=== PATIENT | female | born 1930 | race Caucasian/White ===

== ENCOUNTER → 2016-07-26 | Outpatient (CLI) | payer MEDICARE ==
[~2016-07-26] VITALS: Ht 157.5 cm; Wt 55.8 kg
[~2016-07-26] MED LIST: LIDOCAINE 1% INJ 20 ML (XYLOCAINE) VIAL ONE
[2016-07-26 14:03] VITALS: BP 137/84
[2016-07-26 15:12] VITALS: BP 130/87
--- NOTE | 2016-07-26 18:20 | Diagnostic Imaging Report ---
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 The patient has had a nephrostomy tube in the right kidney but the nephrostomy tube accidentally was pulled out.. CONSENT: Informed consent was obtained from the patient. The risks, benefits, potential complications and alternatives were reviewed and all questions answered to the patient's satisfaction. The patient's vital signs, cardiac rhythm, and pulse oximetry were observed throughout the procedure by qualified nursing personnel. SEDATION: None. CONTRAST: 55 mL of Isovue 300 was utilized. FLUOROSCOPY TIME: 4 minutes and 55 seconds. PROCEDURE: After maximal sterile barrier technique preparation and draping, around the prior nephrostomy tract, __ was performed. The skin was sealed off at the nephrostomy which suggests that the tube has been retracted for at least 5-7 days. Recanalization of the tract with attempted and initially utilizing an angled Glidewire, a portion of the tract was recanalized. The wire would not advance further and a catheter needed to be inserted. Then some contrast was injected and images were performed demonstrating a tract that did not lead to the kidney but appeared to opacify further tract closer to the kidney. This was utilized as a roadmap for advancing the wire further and eventually the wire was advanced into the renal collecting system. Catheter was advanced over the wire and then contrast was injected and confirmed proper location within the right renal collecting system which is severely dilated. Subsequently, the wire was exchanged utilizing the catheter for a stiff wire and a 10 German new nephrostomy tube was introduced over the wire and the pigtail in the is formed within the renal pelvis. Contrast injection was performed subsequently to confirm positioning of the tube and perform a nephrostogram. The patient tolerated the procedure well with no immediate complications. FINDINGS: Nephrostogram demonstrates severe right hydronephrosis with complete proximal ureteric obstruction. IMPRESSION: 1. Successful placement of a 10 German right nephrostomy tube after successful recanalization of the prior tract into the right kidney under fluoroscopic guidance. 2. Nephrostogram demonstrates complete proximal right ureteric obstruction with severe right hydronephrosis. Dictated by: Dictated on workstation # [id number]
== END ==
LOC: RAD 13:15
PROVIDERS: ATTEND Family Medicine
DX: N13.1 Hydronephrosis with ureteral stricture, not elsewhere classified (principal); N18.9 Chronic kidney disease, unspecified; Z93.6 Other artificial openings of urinary tract status
CPT/HCPCS: 50431; 50435